=== PATIENT | female | born 1970 | race Caucasian/White ===

== ENCOUNTER → 2018-01-24 | Outpatient (CLI) | payer BC | LOC: NUC 08:33 → EDSTATUS 14:53 → NUC 16:05 | DX: M81.0 Age-related osteoporosis without current pathological fracture (principal); M85.88 Other specified disorders of bone density and structure, other site; E28.39 Other primary ovarian failure; M84.374D Stress fracture, right foot, subsequent encounter for fracture with routine healing ==

== ENCOUNTER → 2020-04-29 | Outpatient (CLI) | payer BC | LOC: NUC 08:05 | PROVIDERS: ATTEND Orthopaedic Surgery Foot and Ankle Surgery | DX: M85.89 Other specified disorders of bone density and structure, multiple sites (principal); M81.0 Age-related osteoporosis without current pathological fracture ==